=== PATIENT | female | born 1980 | race Caucasian/White ===

== ENCOUNTER 2021-10-17 20:50 | Emergency (ER) | payer SELFPAY ==
[2021-10-17 21:09] VITALS: BP 119/78; PULSE 95; RESP 20; TEMP 37.5; O2SAT 100; BMI 25.1
--- NOTE | 2021-10-17 21:54 | ED.GENADULT ---
HPI - General Adult General Chief complaint: Shortness of Breath/Dyspnea Stated complaint: CAN'T BREATHE,COVID+ Time Seen by Provider: 10/17/21 21:41 History of Present Illness HPI narrative: Pt is a 41 year old woman who tested positive for COVID 19 2 days ago. Oxygen saturaion 100% on Room Air. Pt complains of cough, malaise, weakness. No hemoptysis or abd pain. Pt has been vaccinated. No other sick contacts. Pt fevers are low grade only. She is eating and drinking but is concerned about next steps. No further symptoms. Pt seen with aid of recovery assistant. Related Data Previous Rx's Medication Instructions Recorded nirmatrelvir 300 mg (150 mg See Rx Instructions PO .COMPLEX 10/17/21 x2)-ritonavir 100 mg tablet,dose #30 ea pack(EUA) (Paxlovid) Allergies Allergy/AdvReac Type Severity Reaction Status Date / Time No Known Drug Allergies Allergy Verified 10/17/21 21:11 Review of Systems Status of ROS: Reports: 10 or more systems reviewed and unremarkable except as noted in History and below Exam Narrative: Exam Narrative: EXAM GENERAL: Patient appears comfortable and well. EYES: No scleral icterus. ENT: Tympanic membranes and oropharynx normal. THYROID: no thyroid nodules or thyromegaly. LYMPH: No supraclavicular or cervical lymphadenopathy. SKIN: Visible skin seen during exam normal or with benign process only. EXT: No dependent lower extremity pedal edema. HEART: Regular rate and rhythm with no murmurs, rubs, or gallops. LUNGS: Clear to auscultation bilaterally with no crackles or wheezes. ABD: Soft, non tender, non distended. PSYCH: Good eye contact, speech is not pressured. Const: Vital Signs, click to edit/add: Vital Signs - 24 hr 10/17/21 21:09 Temperature 99.5 F Pulse Rate [Right Pulse Oximeter] 95 Respiratory Rate 20 Blood Pressure [Ri ght Upper Arm] 119/78 Pulse Oximetry 100 Oxygen Delivery Me thod Room Air Course Course Hospital Course: Pt seen and examined. Breathing nonlabored. Oxygen saturation 100% on Room Air. Pt very concerned and would like to be treated with Paxlovid. Vital Signs Vital signs: Initial Vital Signs Temperature 99.5 F 10/17/21 21:09 Temperature Source Temporal Artery Scan 10/17/21 21:09 Pulse Rate 95 10/17/21 21:09 Respiratory Rate 20 10/17/21 21:09 Blood Pressure 119/78 10/17/21 21:09 Blood Pressure Mean 91 10/17/21 21:09 Blood Pressure Position Sitting 10/17/21 21:09 Pulse Oximetry 100 10/17/21 21:09 Oxygen Delivery Method 10/17/21 21:09 Vital Signs Temperature 99.5 F 10/17/21 21:09 Pulse Rate 95 10/17/21 21:09 Respiratory Rate 20 10/17/21 21:09 Blood Pressure 119/78 10/17/21 21:09 Pulse Oximetry 100 10/17/21 21:09 Oxygen Delivery Method 10/17/21 21:09 Temperature 99.5 F 10/17/21 21:09 Pulse Rate 95 10/17/21 21:09 Respiratory Rate 20 10/17/21 21:09 Blood Pressure 119/78 10/17/21 21:09 Pulse Oximetry 100 10/17/21 21:09 Oxygen Delivery Method 10/17/21 21:09 Medical Decision Making MDM Narrative Medical decision making narrative: Pt is an otherwise healthy COVID vaccinated woman who presents with a 2 day history of COVID 19. Pt has cough but normal oxygen saturation. Breathing nonlabored Pt would like Paxlovid. Differential Diagnosis Differential Diagnosis: COVID, Bronchitis, Pneumonia, URI Discharge Plan Discharge Clinical Impression: COVID-19 Patient Disposition: Home, Self-Care Condition: Stable Instructions: COVID-19 (Coronavirus Disease 2019) (ED) Additional Instructions: Robitussin Tylenol Motrin Isolation per protocol Rest Fluids Activity Level: No Restrictions Discharge Diet: Regular Prescriptions: New Paxlovid (EUA) 300 mg (150 mg x 2)-100 mg tablets,dose pack See Rx Instructions .ROUTE .COMPLEX Qty: 30 0RF Rx Instructions: take TWO 150 mg tablets of nirmatrelvir with ONE 100 mg tablet of ritonavir twice daily for 5 days Stand Alone Forms: [facility] Info Instructions
== END 2021-10-17 22:47 | disposition home or self-care (01) ==
PROVIDERS: Emergency Provider Internal Medicine
DX: U07.1 COVID-19 (principal)
CPT/HCPCS: 99282; 99283

== ENCOUNTER 2023-04-08 15:52 | Emergency (ER) | payer OTHER, SELFPAY ==
[2023-04-08 15:57] VITALS: BP 112/55; PULSE 68; RESP 14; TEMP 36.9; O2SAT 100; BMI 23.8
--- NOTE | 2023-04-08 16:03 | ED_ITS ---
HPI - Back Pain/Injury General Time Seen by Provider: 16:03 Date Seen: 04/08/23 Chief Complaint: Back Injury/Pain Stated Complaint: Lower right back pain from the inside Time Seen by Provider: 04/08/23 16:03 Source: patient, RN notes reviewed and certified court/medical interpreter Mode of arrival: ambulatory Limitations: no limitations History of Present Illness HPI Narrative: Patient is a 42-year-old female ambulatory into the ED with right sided flank or back pain that wraps around into the front of her stomach. This started today. She states a few days ago she had pain more lower that did go into her leg, this did not happen today. Pain started earlier, seems to go in waves where it intensifies and then worsens. She admits she feels better now. When the pain is bad she felt some nausea. Otherwise is been no nausea vomiting no diarrhea, no concern for changes in stool habits or urinary issues. About 23 or 24 years ago, she states she had a kidney infection. There is no history of kidney stones for herself for in the family. Her daughter has had her gallbladder out. She has had no fevers with this. There has been no trauma, does not think she injured her back in any way. Patient states that there is no chance for . Work related injury: No Related Data Home Medications Medication Instructions Recorded Confirmed No Known Home Medications 04/08/23 04/08/23 Allergies Allergy/AdvReac Type Severity Reaction Status Date / Time No Known Drug Allergies Allergy Verified 10/17/21 21:11 Review of Systems Status of ROS: Reports: 6 or more systems reviewed and unremarkable except as noted in History and below PFSH PFSH Social History Smoking Status: Never smoker Do you use any of these nicotine containing products: None Second hand tobacco smoke exposure: No How often do you have a drink containing alcohol: never How often do you have six or more drinks on one occasion: Never AUDIT-C Alcohol total score: 0 Non-prescribed substance use: denies use service: No Exam Const: Vital Signs, click to edit/add: Vital Signs - 24 hr 04/08/23 15:57 Temperature 98.5 F Pulse Rate [Pulse Oximeter] 68 Respiratory Rate 14 Blood Pressure [Ri ght Upper Arm] 112/55 L Pulse Oximetry 100 Oxygen Delivery Me thod Room Air This 42-year-old female is alert, interactive, no apparent distress. She is seen in exam room 3, lying in bed. Sclera clear, speech normal, able speak in complete sentences. Is able to sit up, lungs are clear, no wheezing or crackles. No rash or traumatic changes noted over back. She is nontender on palpation of spine. She has some right CVA tenderness on exam. Abdomen with some right mid mild abdominal pain without rebound or guarding, no organomegaly or masses noted. Bowel sounds are normal. Neurovascular grossly intact, normal strength, negative straight leg raising. No edema of legs. Documenting provider has reviewed patient's vital signs: yes Course Course ED Course: Have reviewed with patient that I do have concerns of intra-abdominal issues, kidney stones and renal issues certainly are possible. Exam is not necessarily consistent with gallbladder pathology but will be a consideration. She is able to provide urine, will get urinalysis and other labs. Will give her 15 mg IV Toradol. She will have CT of her abdomen noncontrast. Reevaluation(s) Time of Reevaluation #1: 18:02 Reevaluation #1: Patient is requesting to eat, did tell nursing staff this is fine. I will be in to see her shortly to review her CT scan and labs. Did provide a copy of her CT, we did go over CT results. Her pain was worse at home, still has small amount of residual pain. She does have some nonobstructive stones into the right kidney. It is possible that she passed a small stone. She is on the last day of her menstrual cycle, could be responsible for some hematuria that we see. We did review that she is anemic, her menstrual cycles are heavy at times. She has been on oral contraceptives in the past but did not like them due to symptoms. We did review iron and possible constipation that can come from it. She should follow up in clinic, confirmation of iron deficiency should be confirmed and that she does not need further workup. Vital Signs Vital signs: Initial Vital Signs Temperature 98.5 F 04/08/23 15:57 Temperature Source Temporal Artery Scan 04/08/23 15:57 Pulse Rate 68 04/08/23 15:57 Pulse Rhythm Regular 04/08/23 15:57 Respiratory Rate 14 04/08/23 15:57 Blood Pressure 112/55 L 04/08/23 15:57 Blood Pressure Mean 74 04/08/23 15:57 Blood Pressure Position Sitting 04/08/23 15:57 Pulse Oximetry 100 04/08/23 15:57 Oxygen Delivery Method Room Air 04/08/23 15:57 Vital Signs Temperature 98.5 F 04/08/23 15:57 Pulse Rate 68 04/08/23 15:57 Respiratory Rate 14 04/08/23 15:57 Blood Pressure 112/55 L 04/08/23 15:57 Pulse Oximetry 100 04/08/23 15:57 Oxygen Delivery Method Room Air 04/08/23 15:57 Temperature 98.5 F 04/08/23 15:57 Pulse Rate 68 04/08/23 15:57 Respiratory Rate 14 04/08/23 15:57 Blood Pressure 112/55 L 04/08/23 15:57 Pulse Oximetry 100 04/08/23 15:57 Oxygen Delivery Method Room Air 04/08/23 15:57 Medications Administered Medications: Discontinued Medications Generic Name Dose Route Start Last Admin Trade Name Mitchell PRN Reason Stop Dose Admin Ketorolac Tromethamine 15 mg 04/08/23 16:16 04/08/23 16:53 Ketorolac 15 Mg/Ml Inj IVP 04/08/23 16:17 15 mg ONCE ONE Administration MDM - Back Pain/Injury Lab Data Attestation: I reviewed the patient's lab results. Labs: Lab Results 04/08/23 04/08/23 Range/Units 16:50 17:30 WBC 7.08 (4.50-11.00) K/uL RBC 4.43 (4.00-5.20) m/uL Hgb 8.9 L (12.0-16.0) gm/dL Hct 30.6 L (33.0-51.0) % MCV 69 L (80-100) fL MCH 20 L (26-34) pg MCHC 29 L (32-36) gm/dL RDW Coeff of Rosa 18.0 H (11.5-15.5) % Plt Count 313 (140-440) K/uL Neut % (Auto) 56.0 (42.0-72.0) % Lymph % (Auto) 36.0 (20-44) % Pitt % (Auto) 6.2 (0.0-11.0) % Eos % (Auto) 1.0 (0.0-7.0) % Baso % (Auto) 0.7 (0.0-3.0) % Neut # (Auto) 3.96 (1.7-7.0) K/uL Lymph # (Auto) 2.55 (0.90-2.90) K/uL Pitt # (Auto) 0.40 (0.00-0.90) K/UL Eos # (Auto) 0.07 (0.00-0.50) K/uL Baso # (Auto) 0.05 (0.00-0.30) K/uL Abs Immat Gran (auto) 0.01 (0.00-0.30) K/uL Imm/Tot Granulo (auto) 0.1 % Sodium 139 (135-149) mmol/L Potassium 3.9 (3.6-5.1) mmol/L Chloride 107 (96-114) mmol/L Carbon Dioxide 22 (20-32) mmol/L Anion Gap 10 (7-15) mEq/L BUN 14 (5-24) mg/dL Creatinine 0.4 L (0.5-1.5) mg/dL Estimated Creat Clear 147.86 Estimated GFR 128 ml/min Glucose 115 (60-115) mg/dL Lactate 1.3 (0.5-1.9) mmol/L Calcium 9.4 (8.4-10.6) mg/dL Total Bilirubin 0.3 (0.1-1.5) mg/dL Direct Bilirubin 0.1 (0.0-0.5) mg/dL AST 20 (12-35) U/L ALT 13 (4-35) U/L Alkaline Phosphatase 79 (40-150) U/L C-Reactive Protein < 0.5 L (0.5-1.0) mg/dL Total Protein 7.9 (6.0-8.3) g/dL Albumin 4.5 (3.3-5.0) g/dL Urine Color Yellow (Yellow) Urine Appearance Clear (Clear) Urine pH 6.0 (5.0-8.5) Ur Specific [place] >= 1.030 (1.000-1.030) Urine Protein Negative (Negative) Urine Glucose (UA) Negative (Negative) Urine Ketones Negative (Negative) Urine Blood 2+ A (Negative) Urine Nitrite Negative (Negative) Urine Bilirubin Negative (Negative) Urine Urobilinogen 0.2 (0.2-1.0) Ur Leukocyte Esterase Negative (Negative) Urine RBC 10-25 A (0-2) Urine WBC 0-2 (0-5) Ur Squamous Epith Cells None (None-Few) Other Sediment Few A (None) Urine Bacteria Few A (None) Urine Mucus Moderate A (None) Urine Yeast Few A (None) Urine HCG, Qual Negative (Negative) Imaging Data CT scan - abdomen: Attestation: I have reviewed the pertinent imaging results. Radiologist's impression: Patient: JAN MARQUIS Facility:?[facility] Patient ID:?[id number] Site Patient ID:?[id number]. Site :?[id number] Study:?CT Abdomen/Pelvis WITHOUT-04/08/2023 5:15:00 PM Ordering Physician:SHANA Final Report: INDICATION: Right-sided abdominal pain. Technique noncontrast CT abdomen and pelvis. Comparison CT abdomen and pelvis 08/03/2016. FINDINGS: The heart size is normal. The lung bases are clear. The unenhanced liver gallbladder spleen pancreas is unremarkable. Adrenal glands are unremarkable. Normal caliber abdominal aorta. Punctate nonobstructing right renal calculus. No hydronephrosis. Normal appendix. Small 3 mm calculus in the right bladder base. Abundant stool in the colon. No suspicious bony lesions are seen. IMPRESSION: 1. No acute findings in the abdomen or pelvis. Normal appendix. 2. Punctate nonobstructing right renal calculus. No hydronephrosis is seen there is a 3 mm right bladder calculus seen. 3. Abundant stool in the colon. Please note that all CT scans at this facility use dose modulation, iterative reconstruction, and/or weight-based dosing when appropriate to reduce radiation dose to as low as reasonably achievable. Dictated by Moira Castro MD @ 04/08/2023 5:39:25 PM (Electronic Signature) Discharge Plan Discharge Clinical Impression: Kidney stone Anemia Qualifiers: Anemia type: unspecified type Qualified Code(s): D64.9 - Anemia, unspecified Abdominal pain Qualifiers: Abdominal location: unspecified location Qualified Code(s): R10.9 - Unspecified abdominal pain Patient Disposition: Home, Self-Care Condition: Stable Instructions: Kidney Stones (ED), Abdominal Pain (ED), Anemia (ED) Additional Instructions: Need to follow up in clinic this week for re-evaluation. Your anemia should be further evaluated, confirm iron deficiency, review treatment of iron deficiency anemia. It is currently unclear if you potentially passed a small kidney stone, there are other kidney stones in the right kidney. If you develop severe abdominal pain again, if it is associated with fever vomiting, do need to be re- evaluated. Recommend iron rich foods, can take an [id number] iron supplement. Iron supplements can cause constipation, you will have to see how you react to these. Activity Level: Activity as Tolerated Prescriptions: No Action No Known Home Medications Follow Up/Referrals: Provider,Not a Local [Primary Care Provider] - Stand Alone Forms: [employer] Info Instructions
--- NOTE | 2023-04-08 16:17 | CT_ITS ---
Final Report Patient: JAN MARQUIS Facility:?[facility] Patient ID:?[id number] Site Patient ID:?[id number]. Site :?[id number] Study:?CT Abdomen/Pelvis WITHOUT-04/08/2023 5:15:00 PM Ordering Physician:SHANA Final Report: INDICATION: Right-sided abdominal pain. Technique noncontrast CT abdomen and pelvis. Comparison CT abdomen and pelvis 08/03/2016. FINDINGS: The heart size is normal. The lung bases are clear. The unenhanced liver gallbladder spleen pancreas is unremarkable. Adrenal glands are unremarkable. Normal caliber abdominal aorta. Punctate nonobstructing right renal calculus. No hydronephrosis. Normal appendix. Small 3 mm calculus in the right bladder base. Abundant stool in the colon. No suspicious bony lesions are seen. IMPRESSION: 1. No acute findings in the abdomen or pelvis. Normal appendix. 2. Punctate nonobstructing right renal calculus. No hydronephrosis is seen there is a 3 mm right bladder calculus seen. 3. Abundant stool in the colon. Please note that all CT scans at this facility use dose modulation, iterative reconstruction, and/or weight-based dosing when appropriate to reduce radiation dose to as low as reasonably achievable. Dictated by Moira Castro MD @ 04/08/2023 5:39:25 PM (Electronic Signature)
[2023-04-08] MEDS: KETOROLAC 15 MG/ML inj IVP (16:53)
[2023-04-08 16:56] LABS: Lactate* 1.3 mmol/L (0.5-1.9)
[2023-04-08 16:57] LABS: Basophils Absolute Auto 0.05 K/uL (0.00-0.30); Basophils Percent Auto 0.7 % (0.0-3.0); Eosinophils Absolute Auto 0.07 K/uL (0.00-0.50); Hematocrit 30.6 % (33.0-51.0); Hemoglobin* 8.9 gm/dL (12.0-16.0); Immature Granulocytes Abs Auto 0.01 K/uL (0.00-0.30); Immature Granulocytes Pct Auto 0.1 %; Lymphocytes Absolute Auto 2.55 K/uL (0.90-2.90); Mean Corpuscular HGB Conc 29 gm/dL (32-36); Mean Corpuscular Hemoglobin 20 pg (26-34); Mean Corpuscular Volume 69 fL (80-100); Monocytes Percent Auto 6.2 % (0.0-11.0); Neutrophils Absolute Auto 3.96 K/uL (1.7-7.0); Platelet Count* 313 K/uL (140-440); Red Blood Count 4.43 m/uL (4.00-5.20); White Blood Count* 7.08 K/uL (4.50-11.00)
[2023-04-08 17:01] LABS: Slide Review Reflex No
[2023-04-08 17:11] LABS: Chloride* 107 mmol/L (96-114)
[2023-04-08 17:12] LABS: Albumin* 4.5 g/dL (3.3-5.0); Sodium* 139 mmol/L (135-149)
[2023-04-08 17:13] LABS: Potassium* 3.9 mmol/L (3.6-5.1)
[2023-04-08 17:15] LABS: Alkaline Phosphatase* 79 U/L (40-150); Anion Gap 10 mEq/L (7-15); Aspartate Amino Transferase* 20 U/L (12-35); Bilirubin Direct* 0.1 mg/dL (0.0-0.5); Bilirubin Total* 0.3 mg/dL (0.1-1.5); Carbon Dioxide* 22 mmol/L (20-32); Creatinine* 0.4 mg/dL (0.5-1.5); Est. Creatinine Clearance* 147.86; Estimated Glomerular Filt Rate 128 ml/min; Total Protein* 7.9 g/dL (6.0-8.3)
[2023-04-08 17:16] LABS: Alanine Aminotransferase* 13 U/L (4-35); Blood Urea Nitrogen* 14 mg/dL (5-24); Calcium* 9.4 mg/dL (8.4-10.6); Glucose* 115 mg/dL (60-115)
[2023-04-08 17:19] LABS: C Reactive Protein* < 0.5 mg/dL (0.5-1.0)
[2023-04-08 17:36] LABS: Appearance Urine Clear (Clear); Bilirubin Urine Negative (Negative); Blood Urine 2+ (Negative); Color Urine Yellow (Yellow); Glucose Urine Negative (Negative); Ketones Urine Negative (Negative); Leukocyte Esterase Urine Negative (Negative); Nitrite Urine Negative (Negative); Protein Urine Negative (Negative); Specific Gravity Urine >= 1.030 (1.000-1.030); Ur HCG Qualitative* Negative (Negative); Urobilinogen Urine 0.2 (0.2-1.0)
[2023-04-08 17:48] LABS: Bacteria Urine Few; Mucus Urine Moderate; Other Sediment Urine Few; WBC Urine 0-2 (0-5)
[2023-04-08 18:01] VITALS: BP 114/71; PULSE 74; RESP 14; O2SAT 99
[2023-04-08 18:30] VITALS: BP 112/55; PULSE 68; RESP 14; TEMP 36.9
== END 2023-04-08 18:30 | disposition home or self-care (01) ==
PROVIDERS: Emergency Provider Family Medicine
DX: N20.0 Calculus of kidney (principal); D64.9 Anemia, unspecified
CPT/HCPCS: 36415; 74176; 80053; 81001; 81025; 82248; 83605; 85025; 86140; 87086; 96374; 99284; J1885